=== PATIENT | male | born 1945 | race Caucasian/White ===

== ENCOUNTER 2019-04-23 07:18 | Inpatient (IN) | payer OTHER ==
--- NOTE | 2019-04-09 18:31 | HPE ---
DATE OF ADMISSION: 04/23/2019 CHIEF COMPLAINT: Left knee pain. HISTORY OF PRESENT ILLNESS: Mr. Rosen is a pleasant 73-year-old male with progressively worsening left knee pain and stiffness. He has failed to improve with conservative treatment. He has elected for surgery for his continued symptoms. He has pain with weightbearing activities and his activities of daily living. X-rays of his knee are notable for advanced osteoarthritis of the left knee joint. He has consented for a left total knee arthroplasty by Dr. Stef Kirby. Medical optimization was performed by Dr. Ronquillo. ALLERGIES: ALLOPURINOL. CURRENT MEDICATIONS: - Jardiance 10 mg - olmesartan 20 mg - febuxostat 80 mg - Synthroid 50 mcg - regular strength aspirin enteric-coated once a day - 80 mg of simvastatin at night - 200 mg of CoQ10 at night - 1000 mg of metformin twice a day - 150 mg of ranitidine twice a day - 5 mg of glipizide ER twice a day - 1400 mg flaxseed oil twice a day - tumeric twice a day - fiber caplets three of those twice a day - 25 mg of indomethacin as needed for gout flares PAST MEDICAL HISTORY: Includes diabetes, hypertension, hypercholesterolemia, hypothyroidism, and gout. PAST SURGICAL HISTORY: Includes eye surgery for amblyopia, left knee arthroscopy, and a foot surgery. 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 He does not smoke or drink alcohol. FAMILY HISTORY: Noncontributory. REVIEW OF SYSTEMS: This patient denies chest pain, heart palpitations, cough, wheezing, difficulty breathing and shortness of breath. He denies abdominal pain, nausea, vomiting, diarrhea or constipation. He denies recent upper respiratory infection or urinary tract infection symptoms. He does complain of persistent pain in the left knee. PHYSICAL EXAMINATION: GENERAL: He is a well-nourished, well-developed, in no acute distress, alert male patient. He ambulates with a moderate limp favoring the left lower extremity. He is not using assistive devices. VITAL SIGNS: He is 69-3/4 inches tall, weighs 203.4 pounds with a temperature of 96.6, blood pressure 110/60, pulse of 88 and respirations of 18. NECK: Supple without adenopathy or jugular venous distension. There were no carotid bruits upon auscultation. LUNGS: Clear to auscultation without rales or wheeze throughout. HEART: Regular rate and rhythm. ABDOMEN: Bowel sounds were present. EXTREMITIES: Examination of the knee revealed intact skin. The patient had decreased range of motion due to pain and stiffness. Otherwise, the limb is neurovascularly intact. LABORATORY DATA: Chest x-ray showed no acute cardiopulmonary disease processes. EKG showed normal sinus rhythm at 82 beats per minute. Prothrombin time 12.4, INR 0.95, glucose 68, BUN 19, creatinine 1.33 for a GFR of 56. Sodium 143, potassium 4.16. CBC was within normal limits with a sedimentation rate of 2. IMPRESSION: Symptomatic osteoarthritis of the left knee joint. PLAN: Consented for a left total knee arthroplasty by Dr. Stef Kirby.
[~2019-04-23] VITALS: Ht 177.8 cm; Wt 88.0 kg
[~2019-04-23 07:18] MED LIST: ACETAMINOPHEN 500 MG TAB As Ordered ONE; ASPI81TA85 PO; BAYE325T12 PO; BENI20TA18 PO; BUPIVACAINE HCL 0.25% 10 ML VIAL As Ordered ONE; BUPIVACAINE LIPOSOME/PF 1.3% 20ML VIAL (13.3MG/ML)(EXPAREL)(C9290 PER1MG) As Ordered ONE; COQ1200C3 PO; EPINEPHrine INJ 1 MG/ML 1ML AMP As Ordered ONE; FLAX1CAP5 PO; GLIP5TAB8 PO; INDO-16 PO; INVO100T PO; JARD1TAB PO; LIDO5DIS41 TOP; LIDOCAINE 1% MDV 20ML VIAL SQ PRN; LR 1,000 ML IV ONE; METF10004 PO; MIDAZOLAM INJ 2 MG/2 ML VIAL (J2250) IV SCH; NAPR-832 PO; NAPR-885 PO; OLME20TA2 PO; RANI1TAB6 PO; SIMV40TA2 PO; SIMV80TA13 PO; SYNT50TA PO; TRANEXAMIC ACID 100 MG/ML 10ML VIAL As Ordered ONE; ULOR80TA PO; VITA1TAB23 PO; VITA200016 PO; [UNRECOGNIZED DRUG - CODE] PO; ceFAZolin 1GM INJ (J0690 PER 500MG) As Ordered ONE; ceFAZolin 2 GM/D5W 50 ML IV BAG (J0690 PER 500MG) As Ordered ONE; fentaNYL 100 MCG/2 ML INJECTION (J3010) IV SCH; tumeric PO
[2019-04-23] MEDS ORDERED: LIDOCAINE 2% INJ 100 MG/5 ML SDV (FOR ANES.) As Ordered ONE (07:27)
[2019-04-23] MEDS ORDERED: PROPOFOL 200 MG/20 ML VIAL As Ordered ONE (07:27)
[2019-04-23] MEDS ORDERED: fentaNYL 100 MCG/2 ML INJECTION (J3010) As Ordered ONE ×2 (07:28→07:44)
[2019-04-23] MEDS ORDERED: MIDAZOLAM INJ 2 MG/2 ML VIAL (J2250) As Ordered ONE ×3 (07:28→10:30)
[2019-04-23] MEDS ORDERED: ACETAMINOPHEN 500 MG TAB PO ONE (07:30)
[2019-04-23] MEDS ORDERED: BUPIVACAINE HCL 0.25% 30 ML VIAL As Ordered ONE (07:56)
[2019-04-23] MEDS ORDERED: BUPIVACAINE HCL 0.25% 10 ML VIAL As Ordered ONE (07:56)
[2019-04-23] MEDS ORDERED: LIDOCAINE 1% MDV 20ML VIAL ONE (08:35)
[2019-04-23] MEDS ORDERED: dexameTHASONE 4 MG/ML 1ML VIAL (J1100) ONE (08:35)
[2019-04-23] MEDS ORDERED: PHENYLephrine HCL 500 MCG/5 ML (100MCG/ML) SYRINGE (J2370) As Ordered ONE (09:48)
[2019-04-23] MEDS ORDERED: ONDANSETRON 4MG/2ML VIAL (J2405) As Ordered ONE (10:07)
[2019-04-23] MEDS ORDERED: KETOROLAC 60 MG/2 ML VIAL (J1885) As Ordered ONE (10:07)
[2019-04-23] MEDS ORDERED: ACETAMINOPHEN TAB 650MG DOSE (2X325MG) PO PRN (11:45)
[2019-04-23] MEDS ORDERED: FLEET ENEMA PR PRN (11:45)
[2019-04-23] MEDS ORDERED: PROMETHAZINE INJ 25 MG/ML VIAL (J2550) IV PRN (12:00)
[2019-04-23] MEDS ORDERED: LR 1,000 ML IV SCH (12:00)
[2019-04-23] MEDS ORDERED: METOCLOPRAMIDE INJ 10MG/2ML VIAL (J2765) IV PRN (12:00)
[2019-04-23] MEDS ORDERED: HYDROMORPHONE HCL 0.5 MG/ 0.5 ML SYRINGE (J1170 PER 1) IV PRN ×3 (12:00)
[2019-04-23] MEDS ORDERED: fentaNYL 100 MCG/2 ML INJECTION (J3010) IV PRN (12:00)
[2019-04-23] MEDS ORDERED: oxyCODONE 5MG TAB As Ordered ONE ×2 (13:16→13:40)
[2019-04-23] MEDS: oxyCODONE 5MG TAB PO PRN ×2 (13:17→13:40)
[2019-04-23 14:00] VITALS: BP 121/65
[2019-04-23] MEDS: LR 1,000 ML IV SCH ×2 (14:30→22:31)
[2019-04-23 14:45] VITALS: BP 119/65
[2019-04-23] MEDS ORDERED: PERCOCET 5MG/325MG TAB PO PRN (15:15)
[2019-04-23] MEDS ORDERED: ONDANSETRON 4 MG TAB (S0181) PO PRN (15:15)
--- NOTE | 2019-04-23 15:30 | REP ---
REASON: Postoperative. The tibial and femoral components of the total knee prosthetic device are well seated and well approximated. The alignment is near anatomical. There is expected postoperative soft tissue swelling. There is an anterior midline skin staple line in place. Electronically Signed by Guanakito Flannery DO 04/23/2019 04:46 P
[2019-04-23 15:41] VITALS: BP 119/65
[2019-04-23 17:19] VITALS: BP 126/69
[2019-04-23] MEDS ORDERED: GLUCOSE 4 GM CHEW TABLET PO PRN (21:45)
[2019-04-23] MEDS ORDERED: GLUCAGON FOR INJ 1 MG VIAL (J1610) SC PRN (21:45)
[2019-04-23] MEDS ORDERED: DEXTROSE 50% 50 ML SYRINGE IV PRN (21:45)
[2019-04-23 22:25] VITALS: BP 117/68
[2019-04-24 02:00] VITALS: BP 115/56
[2019-04-24] MEDS: PERCOCET 5MG/325MG TAB PO PRN ×3 (03:19→12:51)
[2019-04-24 05:43] LABS: HEMATOCRIT 39.1 % (42.0-52.0); HEMOGLOBIN 13.3 g/dl (13.5-17.5); MEAN CORPUSCULAR HEMOGLOBIN 29.6 pg (27.0-33.0); MEAN CORPUSCULAR VOLUME 86.9 fl (80.0-96.0); PLATELET COUNT, AUTOMATED 148 10^3/uL (150-450); WHITE BLOOD COUNT 9.2 10^3/uL (4.0-10.0)
[2019-04-24 06:02] LABS: BLOOD UREA NITROGEN 17 MG/DL (7-18); CALCIUM LEVEL 8.1 MG/DL (8.8-10.2); CARBON DIOXIDE LEVEL 26 MEQ/L (21-32); CHLORIDE LEVEL 106 MEQ/L (98-107); CREATININE FOR GFR 1.13 MG/DL (0.70-1.30); GLOMERULAR FILTRATION RATE > 60.0 (>42); GLUCOSE, FASTING 127 MG/DL (70-100); POTASSIUM SERUM 4.1 MEQ/L (3.5-5.1); SODIUM LEVEL 139 MEQ/L (136-145)
--- NOTE | 2019-04-24 06:23 | CR.PDOC ---
General Date of Consultation: Apr 23, 2019 Attending Physician: ANGEL LONGO DO Consultation REASON FOR CONSULTATION/CHIEF COMPLAINT: S/p left knee replacement HISTORY OF PRESENT ILLNESS: Patient is 73 years old male with past medical history of osteoarthritis, gout, hypertension, hyperlipidemia presented hospital for planned left knee replacement. Left Knee replacement was done on 05/24/19. When I saw patient he was resting comfortably on the bed, he didn't have any complaints. He stated that he tolerated surgery well. Patient denied any palpitations, shortness of breath, abdominal pain, diarrhea or dysuria ALLERGIES: Please see below. HOME MEDICATIONS: Please see below. PAST MEDICAL HISTORY: See in [facility] PAST SURGICAL HISTORY: See in [facility] FAMILY HISTORY: Noncontributory SOCIAL HISTORY: Patient does not smoke, never smoked cigarettes, no drugs, no EtOH abuse REVIEW OF SYSTEMS: 10 system organ review negative PHYSICAL EXAMINATION: VITAL SIGNS: Please see below. GENERAL APPEARANCE:NAD HEENT: PERRLA, EOMI RESPIRATORY: CTA CARDIOVASCULAR: S1/S2 ABDOMEN: Nontender, nondistended EXTREMITIES: No cyanosis no swelling NEUROLOGICAL: No focal deficiency LABORATORY DATA: Please see below. ASSESSMENT/PLAN: Patient is 73 years old male with past medical history of gout, osteoarthritis, diabetes type 2, hyperlipidemia presented hospital for planned left knee surgery. Patient does not have any acute cardiopulmonary diseases. Patient is afebrile, does not have any signs of infection. Patient medically cleared for discharge Vital Signs/I&O Vital Signs Date Time Temp Pulse Resp B/P (MAP) Pulse Ox O2 Delivery O2 Flow Rate FiO2 04/24/19 03:49 20 04/23/19 22:25 97.9 82 117/68 (84) 98 04/23/19 14:23 2.0 I&O- Last 24 Hours up to 6 AM 04/24/19 05:59 Intake Total 1980 ml Output Total 700 ml Balance 1280 ml Laboratory Data Labs 24H Laboratory Tests 2 04/23/19 22:24: Bedside Glucose (Misc Panel) 182H 04/24/19 05:15: Nucleated Red Blood Cells % (auto) 0.0, Anion Gap 7L, Glomerular Filtration Rate > 60.0, Blood Urea Nitrogen 17, Creatinine 1.13, Sodium Level 139, Potassium Level 4.1, Chloride Level 106, Carbon Dioxide Level 26, Calcium Level 8.1L CBC/BMP Laboratory Tests 04/23/19 07:40 04/24/19 05:15 Red Blood Count 4.50, Mean Corpuscular Volume 86.9, Mean Corpuscular Hemoglobin 29.6, Mean Corpuscular Hemoglobin Concent 34.0, Red Cell Distribution Width 12.7, Calcium Level 8.1 L Allergies Coded Allergies: allopurinol (Verified Allergy, Intermediate, facial rash, 03/28/19) Home Medications Scheduled Aspirin (Aspirin) 325 Mg Tablet, 325 MG PO DAILY, (Reported) Empagliflozin (Jardiance) 10 Mg Tablet, 10 MG PO DAILY, (Reported) Febuxostat (Uloric) 80 Mg Tab, 80 MG PO DAILY, (Reported) Flaxseed Oil (Flaxseed Oil) 1,000 Mg Capsule, 1 CAP PO DAILY, (Reported) Glipizide (Glipizide) 5 Mg Tab, 5 MG PO BID, (Reported) Levothyroxine Sodium (Synthroid) 50 Mcg Tab, 50 MCG PO DAILY, (Reported) Metformin HCl (Metformin HCl) 1,000 Mg Tab, 1,000 MG PO BID, (Reported) Naproxen (Naproxen) 500 Mg Tab, 500 MG PO BID, (Reported) Olmesartan Medoxomil (Olmesartan Medoxomil) 20 Mg Tablet, 20 MG PO DAILY, (Reported) Psyllium Husk (Fiber Laxative) 0.52 Gm Capsule, 0.52 GM PO DAILY, (Reported) Ranitidine HCl (Ranitidine HCl) 150 Mg Tab, 150 MG PO BID, (Reported) Simvastatin (Simvastatin) 40 Mg Tablet, 80 MG PO DAILY, (Reported) Ubidecarenone (Co Q10) 200 Mg Capsule, 200 MG PO DAILY, (Reported) [tumeric] , 500 MG PO BID, (Reported) Scheduled PRN Indomethacin (Indomethacin) 25 Mg Cap, 25 MG PO TIDP PRN for PAIN, (Reported) Lidocaine (Lidoderm) 5% Adh..patch, 1 PATCH TOP Q12HP PRN for PAIN for 30 Days, #30 (Reported) may wear up to 12 hours ANGEL LONGO DO Apr 24, 2019 06:23
[2019-04-24 07:01] VITALS: BP 113/64
[2019-04-24] MEDS: HumaLOG INSULIN (NovoLOG) PER UNIT SC SCH ×2 (07:30→12:00)
[2019-04-24] MEDS ORDERED: XARE10TA PO (07:37)
[2019-04-24] MEDS ORDERED: PERC5TAB12 PO (07:37)
[2019-04-24] MEDS ORDERED: MOM 30ML SUSPENSION UDC PO SCH (09:00)
[2019-04-24] MEDS ORDERED: MIRALAX *UNIT DOSE* 17GM PACKET PO SCH (09:00)
[2019-04-24] MEDS ORDERED: RIVAROXABAN 10 MG TAB (XARELTO) PO SCH (18:00)
--- NOTE | 2019-04-25 12:07 | RO ---
DATE OF PROCEDURE: 04/23/2019 PREOPERATIVE DIAGNOSIS: Severe varus tricompartmental degenerative arthritis left knee. POSTOPERATIVE DIAGNOSIS: Severe varus tricompartmental degenerative arthritis left knee. PROCEDURE: Left total knee arthroplasty using cruciate sacrificing size #8 femoral component with a size #8 tibial tray and a 7 mm rotating platform posterior stabilized polyethylene insert and a 38 mm polyethylene button. The prosthesis was an ATTUNE knee made Abilio[employer]ilio/DePuy. SURGEON: Damaso Kirby MD TOP LIFT COMPRESSOR: Andressa Suarez PA-C ANESTHESIA: Spinal with left femoral nerve block. COMPLICATIONS: None. FINDINGS: He had severe varus tricompartmental arthritis with a large flexion contracture, approximately 20 degrees if not a little bit more with flexion limited only to about 90 at the most. He had large impinging osteophytes. PROCEDURE: Antibiotics were given intravenously preoperatively then a successful left femoral nerve block and then spinal anesthetic was induced. Tourniquet was placed left upper thigh, not inflated. Left lower extremity was carefully prepped and draped in the usual sterile fashion and elevated. Then after appropriate time out, the tourniquet was inflated to 250 mmHg for 89 minutes. A longitudinal incision was made for a medial parapatellar approach to the knee. Bovie cautery was used to coagulated crossing vessels. Subperiosteal dissection around the proximal, medial and lateral tibial plateau was performed, and the patella everted and knee flexed, drilled was placed down the center of the femoral canal followed by the intramedullary ayad and distal femoral cutting jig, set at 90 degree resection level, a 5 degree valgus cut for a left knee. It was pinned into position. We debated whether or not to take 2 additional millimeters because of his flexion contracture, but we would like to first take a look at the standard cut first. The AP sizing jig was measured for a size 8. It was pinned into position and then we performed the anterior posterior chamfer cuts without difficulty. We then exposed the proximal tibia at this point. But because of his severe deformity and flexion contracture, we would like to go with a cruciate sacrificing knee prosthesis. The ACL/PCL notch was then debrided at this point allowing us to better expose the proximal tibia. It is noteworthy that there is a large anterior impinging osteophyte along the anterior rim of the tibia, which is primarily preventing his extension. We used the extramedullary alignment jig to estimate being parallel to the mechanical axis of the tibia, referencing off the medial tibial condyle at 4 mm resection level. The block was pinned into position and the opposite good side came out at about 10 mm. Thus, we used the extramedullary ayad to confirm once again and double checked that we appeared to be parallel to the mechanical axis, however he had significant amount of bowing of the tibial shaft. The ayad did come down and lay directly in the middle of the ankle distally. We then performed the proximal tibial osteotomy and then excised the fragment and then used the lamina concrete spreader first laterally to perform a completion medial meniscectomy, debridement of posterior medial osteophytes, and there was a large posterior osteophyte that was removed with a curved osteotome. I then placed the lamina concrete spreader medially and performed a completion lateral meniscectomy. In the posterior lateral compartment there was a very large, what appeared to be a fabella, but it was unusually large such that it took up the entire width of the posterior femoral condyle, and it appeared almost as if this was a large loose body and thus I took my time to eventually excise this fragment to allow better mobility of the knee and access to the posterolateral compartment of the knee. I then used a spacer block and actually in flexion 7 mm fit nicely. He was a bit snug in extension, thus I felt going back and taking an addition 2 mm would be better balance. Thus I repinned the distal femoral cutting jig using the batwing device and took an additional 2 mm off the distal femur. Later on we applied the 4-in-1 block once again to finish the anterior and posterior chamfer cuts. We then exposed the proximal tibia, sized for a #8 tray, which was pinned into position, followed by the reamer and the broach, then the trial femoral component was applied, then the trial ethylene was placed and brought the knee into extension and everted the patella and performed a patellar osteotomy, sized for a 38 button, lug holes were drilled and the trial placed and the patellofemoral tracking was anatomic. At this point, we removed all of the trial components and placed Exparel in the subperiosteal tissues around the distal femur and the proximal tibia. Mr. Andressa Suarez then mixed the cement on the back table as I prepared the bony surfaces for cementing with a copious amount of pulsatile lavage irrigant solution. Mr. Suarez was also critical to the success of this very difficulty operative procedure given his marked deformity by helping with appropriate soft tissue retraction, helped to manipulate the knee, helped to close the wound, helped to mix the cement, helped to prepare the patient amongst many other tasks to allow me to perform the operation smoothly, efficiently and safely. Once all of the bony surfaces were thoroughly dried, I cemented the tibial try, removed excess cement, then we cemented the femoral component, removed excess cement, then placed the polyethylene and brought the knee into extension, everted the patella and then cemented the patellar button and held it with a clamp and then removed excess cement and held this position until the cement hardened. As we were awaiting this, we copiously pulsatile lavage irrigated out the knee joint and then instilled tranexamic acid, then began closing the apex of the arthrotomy with two #1 PDS sutures and the medial parapatellar area was closed with a #1 PDS suture. Then a running double armed #1 STRATAFIX was used to close the capsule. Then the tourniquet was released. We irrigated between layers. Closed the deep subdermal tissues with interrupted #2-0 PDS sutures and skin was closed with emma, covered by Optifoam and a dry sterile bulky dressing. He was then transferred to the recovery room in stable condition. There were no intraoperative complications.
== END 2019-04-24 13:00 | disposition home or self-care (01) | DRG 470 ==
LOC: M OR 07:18 → M MS5PR 13:55
PROVIDERS: ADMIT Orthopaedic Surgery; ATTEND Orthopaedic Surgery
PROC: 0SRD0J9 Replacement of Left Knee Joint with Synthetic Substitute, Cemented, Open Approach (ICD-10-PCS; principal; 2019-04-23 09:15)
DX: M17.12 Unilateral primary osteoarthritis, left knee (principal); Z79.899 Other long term (current) drug therapy; E11.9 Type 2 diabetes mellitus without complications; E03.9 Hypothyroidism, unspecified; E78.00 Pure hypercholesterolemia, unspecified; I10 Essential (primary) hypertension; M10.9 Gout, unspecified; Z79.82 Long term (current) use of aspirin

== ENCOUNTER → 2019-09-19 | Outpatient (REF) | payer MEDICARE ==
[~2019-09-19] MED LIST changes: -ACETAMINOPHEN 500 MG TAB As Ordered ONE; -BUPIVACAINE HCL 0.25% 10 ML VIAL As Ordered ONE; -BUPIVACAINE LIPOSOME/PF 1.3% 20ML VIAL (13.3MG/ML)(EXPAREL)(C9290 PER1MG) As Ordered ONE; -EPINEPHrine INJ 1 MG/ML 1ML AMP As Ordered ONE; -LIDOCAINE 1% MDV 20ML VIAL SQ PRN; -LR 1,000 ML IV ONE; -MIDAZOLAM INJ 2 MG/2 ML VIAL (J2250) IV SCH; +PERC5TAB12 PO; +RANI-397 PO; -RANI1TAB6 PO; -SIMV40TA2 PO; +SIMV40TA20 PO; -TRANEXAMIC ACID 100 MG/ML 10ML VIAL As Ordered ONE; +XARE10TA PO; -ceFAZolin 1GM INJ (J0690 PER 500MG) As Ordered ONE; -ceFAZolin 2 GM/D5W 50 ML IV BAG (J0690 PER 500MG) As Ordered ONE; -fentaNYL 100 MCG/2 ML INJECTION (J3010) IV SCH
[2019-09-19 20:22] LABS: BASO # 0.1 10^3/uL (0.0-0.2); BASO % 0.7 % (0.0-1.0); EOS # 0.2 10^3/uL (0.0-0.5); EOS % 1.7 % (0.0-3.0); HEMATOCRIT 50.7 % (42.0-52.0); HEMOGLOBIN 16.3 g/dl (13.5-17.5); LYMPH # 2.4 10^3/uL (1.5-5.0); LYMPH % 22.7 % (24.0-44.0); MEAN CORPUSCULAR HEMOGLOBIN 28.2 pg (27.0-33.0); MEAN CORPUSCULAR HGB CONC 32.1 g/dl (32.0-36.5); MEAN CORPUSCULAR VOLUME 87.7 fl (80.0-96.0); MONO # 0.8 10^3/uL (0.0-0.8); NEUTROPHILS % 66.6 % (36.0-66.0); PLATELET COUNT, AUTOMATED 232 10^3/uL (150-450); RED BLOOD COUNT 5.78 10^6/uL (4.30-6.10); WHITE BLOOD COUNT 10.6 10^3/uL (4.0-10.0)
[2019-09-19 20:36] LABS: BLOOD UREA NITROGEN 15 MG/DL (7-18); CALCIUM LEVEL 9.1 MG/DL (8.8-10.2); CARBON DIOXIDE LEVEL 29 MEQ/L (21-32); CHLORIDE LEVEL 104 MEQ/L (98-107); CHOLESTEROL LEVEL 104 MG/DL (<200); CHOLESTEROL RISK RATIO 3.586 (<5); CREATININE FOR GFR 1.18 MG/DL (0.70-1.30); GLOMERULAR FILTRATION RATE > 60.0 (>42); GLUCOSE, FASTING 82 MG/DL (70-100); HDL CHOLESTEROL 29 MG/DL (>40); LDL CHOLESTEROL 54 MG/DL (<100); NON-HDL-C 75 MG/DL; POTASSIUM SERUM 4.1 MEQ/L (3.5-5.1); SODIUM LEVEL 140 MEQ/L (136-145); TRIGLYCERIDES LEVEL 107 MG/DL (<150); URIC ACID 1.9 MG/DL (3.5-7.2)
[2019-09-19 20:40] LABS: VITAMIN B12 LEVEL 252 PG/ML (247-911)
[2019-09-19 20:49] LABS: HEMOGLOBIN A1c 5.8 %
[2019-09-19 20:54] LABS: CREATININE, URINE 80.8 MG/DL; MALB URINE SIEMENS 5.2 MG/L; MAU/CREAT RATIO 6.4 MCG/MG (0.0-30.0)
== END ==
LOC: M SFHCLERA 14:40
PROVIDERS: ATTEND Family Medicine
DX: E11.9 Type 2 diabetes mellitus without complications (principal); E78.5 Hyperlipidemia, unspecified; M10.9 Gout, unspecified

== ENCOUNTER → 2020-02-01 | Outpatient (CLI) | payer MEDICARE ==
[~2020-02-01] MED LIST changes: +ECOT81TA5 PO; +FAMO1TAB25 PO; +QC F0.52 PO
== END ==
LOC: M LABSMTC 09:34
PROVIDERS: ATTEND Anesthesiology
DX: Z01.818 Encounter for other preprocedural examination (principal); Z11.59 Encounter for screening for other viral diseases
CPT/HCPCS: C9803; U0003

== ENCOUNTER 2020-02-04 12:45 | Day surgery (SDC) | payer OTHER ==
[~2020-02-04] VITALS: Ht 177.8 cm; Wt 83.0 kg
[~2020-02-04 12:45] MED LIST changes: +NS 1,000 ML IV ONE
[2020-02-04] MEDS ORDERED: propofoL 200 MG/20 ML VIAL As Ordered ONE ×2 (13:54→14:08)
--- NOTE | 2020-02-04 14:24 | ROOR ---
Patient Name: Patrick Rosen Procedure Date: 02/04/2020 1:52 PM Date of : 1945 Age: 74 Room: [facility] Gender: Male Note Status: Finalized Procedure: Total Colonoscopy to Cecum + Biopsy Polypectomy Indications: High risk colon cancer surveillance: Personal history of colonic polyps, Last colonoscopy: 2015 Providers: Tadeo Camarillo MD Referring MD: CAMILO VALLEJO MD Requesting Provider: Medicines: Monitored Anesthesia Care Complications: No immediate complications. Procedure: Pre-Anesthesia Assessment: - The heart rate, respiratory rate, oxygen saturations, blood pressure, adequacy of pulmonary ventilation, and response to care were monitored throughout the procedure. The Colonoscope was introduced through the anus and advanced to the cecum, identified by appendiceal orifice and ileocecal valve. The colonoscopy was performed without difficulty. The patient tolerated the procedure well. The quality of the bowel preparation was excellent. Findings: The perianal and digital rectal examinations were normal. Two sessile polyps were found at 45 cm proximal to the anus. The polyps were diminutive in size. These polyps were removed with a cold biopsy forceps. Resection and retrieval were complete. No other significant abnormalities were identified in a careful examination of the remainder of the colon. The exam was otherwise without abnormality on direct and retroflexion views. Impression: - Two diminutive polyps at 45 cm proximal to the anus, removed with a cold biopsy forceps. Resected and retrieved. - The examination was otherwise normal on direct and retroflexion views. - The exam was otherwise normal to the cecum. Recommendation: - Patient has a contact number available for emergencies. The signs and symptoms of potential delayed complications were discussed with the patient. Return to normal activities tomorrow. Written discharge instructions were provided to the patient. - High fiber diet. - Discharge patient to home. - Continue present medications. - Await pathology results. - Telephone GI clinic for pathology results in 1 week. - Repeat colonoscopy for symptoms only. - Return to referring physician. - The findings and recommendations were discussed with the patient's family. Tadeo Camarillo MD Tadeo Camarillo MD 02/04/2020 2:24:01 PM Electronically signed by Tadeo Camarillo MD Number of Addenda: 0 Note Initiated On: 02/04/2020 1:52 PM Estimated Blood Loss: Estimated blood loss: none.
[2020-02-04 14:55] VITALS: BP 100/57
== END 2020-02-04 14:59 | disposition home or self-care (01) ==
LOC: M OPP 12:45
PROVIDERS: ATTEND Internal Medicine Gastroenterology
DX: Z12.11 Encounter for screening for malignant neoplasm of colon (principal); K63.5 Polyp of colon; Z79.82 Long term (current) use of aspirin; Z79.84 Long term (current) use of oral hypoglycemic drugs; Z79.899 Other long term (current) drug therapy; Z88.8 Allergy status to other drugs, medicaments and biological substances

== ENCOUNTER → 2020-02-08 | Outpatient (REF) | payer MEDICARE ==
[~2020-02-08] MED LIST changes: -NS 1,000 ML IV ONE
[2020-02-08 17:32] LABS: BASO # 0.1 10^3/uL (0.0-0.2); EOS # 0.2 10^3/uL (0.0-0.5); EOS % 2.6 % (0.0-3.0); HEMATOCRIT 46.4 % (42.0-52.0); LYMPH # 2.7 10^3/uL (1.5-5.0); LYMPH % 32.8 % (24.0-44.0); MEAN CORPUSCULAR HGB CONC 34.5 g/dl (32.0-36.5); MEAN CORPUSCULAR VOLUME 87.1 fl (80.0-96.0); MONO # 0.6 10^3/uL (0.0-0.8); MONO % 7.1 % (0.0-5.0); NEUTROPHILS # 4.7 10^3/uL (1.5-8.5); NEUTROPHILS % 56.3 % (36.0-66.0); PLATELET COUNT, AUTOMATED 214 10^3/uL (150-450); RED BLOOD COUNT 5.33 10^6/uL (4.30-6.10); WHITE BLOOD COUNT 8.3 10^3/uL (4.0-10.0)
[2020-02-08 18:02] LABS: BLOOD UREA NITROGEN 15 MG/DL (7-18); CALCIUM LEVEL 9.3 MG/DL (8.8-10.2); CARBON DIOXIDE LEVEL 30 MEQ/L (21-32); CHLORIDE LEVEL 103 MEQ/L (98-107); CREATININE FOR GFR 1.04 MG/DL (0.70-1.30); GLOMERULAR FILTRATION RATE > 60.0 (>42); GLUCOSE, FASTING 96 MG/DL (70-100); SODIUM LEVEL 141 MEQ/L (136-145)
[2020-02-08 19:09] LABS: HEMOGLOBIN A1c 6.4 %
== END ==
LOC: M SFHCLERA 16:09
PROVIDERS: ATTEND Family Medicine
DX: E11.9 Type 2 diabetes mellitus without complications (principal); D72.829 Elevated white blood cell count, unspecified; E03.9 Hypothyroidism, unspecified

== ENCOUNTER → 2020-07-11 | Outpatient (CLI) | payer MEDICARE, OTHER ==
[~2020-07-11] MED LIST changes: -ASPI81TA85 PO; +ASPI81TA86 PO; +FLON1SPR; +METF-877 PO; -VITA1TAB23 PO; +VITA250T26 PO
== END ==
LOC: M LABSMTC 11:47
PROVIDERS: ATTEND Anesthesiology
DX: Z01.812 Encounter for preprocedural laboratory examination (principal); Z20.828 Contact with and (suspected) exposure to other viral communicable diseases
CPT/HCPCS: C9803; U0003

== ENCOUNTER 2020-07-16 09:22 | Day surgery (SDC) | payer OTHER ==
[~2020-07-16] VITALS: Ht 177.8 cm; Wt 87.1 kg
[~2020-07-16 09:22] MED LIST changes: +NS 1,000 ML IV ONE
[2020-07-16] MEDS ORDERED: LIDOCAINE 2% 100MG/5ML SDV (FOR ANES.) As Ordered ONE (10:00)
[2020-07-16] MEDS ORDERED: propofoL 200 MG/20 ML VIAL As Ordered ONE (10:00)
[2020-07-16] MEDS ORDERED: fentaNYL 100 MCG/2 ML INJECTION (J3010) As Ordered ONE (10:06)
--- NOTE | 2020-07-16 11:42 | ROOR ---
Patient Name: Patrick Rosen Procedure Date: 07/16/2020 11:22 AM Date of : 1945 Age: 75 Room: [facility] Gender: Male Note Status: Finalized Procedure: Upper Endoscopy + Biopsies Indications: Heartburn, Chest pain (non cardiac) Providers: Tadeo Camarillo MD Referring MD: CAMILO VALLEJO MD Requesting Provider: Medicines: Monitored Anesthesia Care Complications: No immediate complications. Procedure: Pre-Anesthesia Assessment: - The heart rate, respiratory rate, oxygen saturations, blood pressure, adequacy of pulmonary ventilation, and response to care were monitored throughout the procedure. The Endoscope was introduced through the mouth, and advanced to the second part of duodenum. The upper GI endoscopy was accomplished without difficulty. The patient tolerated the procedure well. Findings: The Z-line was variable and was found 41 cm from the incisors. Multiple biopsies were obtained with cold forceps for evaluation to rule out Jhaveri's Esophagus randomly at the gastroesophageal junction. Diffuse mildly erythematous mucosa without bleeding was found in the gastric antrum. Biopsies were taken with a cold forceps for Helicobacter pylori testing. The exam of the duodenum was otherwise normal. Impression: - Z-line variable, 41 cm from the incisors. - Erythematous mucosa in the antrum. Biopsied. - Multiple biopsies were obtained at the gastroesophageal junction. - The examination was otherwise normal. Recommendation: - Patient has a contact number available for emergencies. The signs and symptoms of potential delayed complications were discussed with the patient. Return to normal activities tomorrow. Written discharge instructions were provided to the patient. - High fiber diet. - Discharge patient to home. - Follow an antireflux regimen. - Continue present medications. - Await pathology results. - Telephone GI clinic for pathology results in 1 week. - Return to referring physician. - The findings and recommendations were discussed with the patient. Tadeo Camarillo MD Tadeo Camarillo MD 07/16/2020 11:41:25 AM Electronically signed by Tadeo Camarillo MD Number of Addenda: 0 Note Initiated On: 07/16/2020 11:22 AM Estimated Blood Loss: Estimated blood loss: none.
[2020-07-16 12:00] VITALS: BP 118/64
== END 2020-07-16 12:13 | disposition home or self-care (01) ==
LOC: M OPP 09:22
PROVIDERS: ATTEND Internal Medicine Gastroenterology
DX: K22.8 Other specified diseases of esophagus (principal); K31.89 Other diseases of stomach and duodenum; R12 Heartburn; R07.89 Other chest pain; E11.9 Type 2 diabetes mellitus without complications; I10 Essential (primary) hypertension; K21.9 Gastro-esophageal reflux disease without esophagitis; Z79.82 Long term (current) use of aspirin; Z79.84 Long term (current) use of oral hypoglycemic drugs; Z79.899 Other long term (current) drug therapy; Z88.8 Allergy status to other drugs, medicaments and biological substances
CPT/HCPCS: 43239; 88305; J3010

== ENCOUNTER → 2022-03-31 | Outpatient (REF) | payer OTHER ==
[~2022-03-31] MED LIST changes: +FAMO10TA50 PO; -FAMO1TAB25 PO; -NS 1,000 ML IV ONE
== END ==
LOC: M SFHCPLAZ 16:41
PROVIDERS: ATTEND Physician Assistant
DX: R30.0 Dysuria (principal)

== ENCOUNTER → 2024-06-06 | Outpatient (REF) | payer OTHER ==
[~2024-06-06] MED LIST changes: -BENI20TA18 PO; +GLIP5TAB17 PO; -GLIP5TAB8 PO; +OLME-1 PO; -OLME20TA2 PO; +OLME20TA50 PO
[2024-06-06 18:32] LABS: HEMOGLOBIN A1c 6.9 % (4.0-6.0)
[2024-06-06 18:37] LABS: ALKALINE PHOSPHATASE 56 U/L (46-116); ALT/SGPT 18 U/L (7.0-40); AST/SGOT 10 U/L (<34); BILIRUBIN,TOTAL 0.9 MG/DL (0.3-1.2); BLOOD UREA NITROGEN 21 MG/DL (9-23); CALCIUM LEVEL 10.4 MG/DL (8.3-10.6); CARBON DIOXIDE LEVEL 29 MMOL/L (20-31); CHLORIDE LEVEL 102 MMOL/L (98-107); CREATININE FOR GFR 1.07 MG/DL (0.70-1.30); GLOMERULAR FILTRATION RATE > 60.0 (>35); GLUCOSE, FASTING 204 MG/DL (74-106); POTASSIUM SERUM 4.3 MMOL/L (3.5-5.1); SODIUM LEVEL 137 MMOL/L (136-145); TOTAL PROTEIN 7.1 G/DL (5.7-8.2)
== END ==
LOC: M SFHCLERA 10:16
PROVIDERS: ATTEND Family Medicine
DX: E11.9 Type 2 diabetes mellitus without complications (principal)

== ENCOUNTER 2024-07-16 11:31 | Day surgery (SDC) | payer MEDICARE, OTHER ==
[~2024-07-16] VITALS: Ht 177.8 cm; Wt 85.0 kg
[~2024-07-16 11:31] MED LIST changes: +DOXY100T PO; +FAMO40TA3 PO; +FEBU80TA4 PO; +FLUTISP; +LEVO50TA5 PO; +TAMS1CAP17 PO; +UBIQ200C3 PO
[2024-07-16] MEDS ORDERED: dexmedeTOMIDine (4MCG/ML)200MCG/50ML BTL (PRECEDEX) As Ordered ONE (12:17)
[2024-07-16] MEDS ORDERED: propofoL 200 MG/20 ML VIAL As Ordered ONE (12:17)
[2024-07-16] MEDS ORDERED: LIDOCAINE 2% 100MG/5ML SDV (FOR ANES.) As Ordered ONE (12:17)
[2024-07-16 13:29] VITALS: TEMP 97.3
[2024-07-16 14:02] VITALS: BP 96/56; O2SAT 98
== END 2024-07-16 14:02 | disposition home or self-care (01) ==
LOC: M OPP 11:31
PROVIDERS: ATTEND Internal Medicine Gastroenterology
DX: Z86.0100 Personal history of colon polyps, unspecified (principal); K22.70 Barrett's esophagus without dysplasia; K64.0 First degree hemorrhoids; D12.3 Benign neoplasm of transverse colon; K57.30 Diverticulosis of large intestine without perforation or abscess without bleeding; K22.89 Other specified disease of esophagus; K44.9 Diaphragmatic hernia without obstruction or gangrene; K31.89 Other diseases of stomach and duodenum; R12 Heartburn; K57.10 Diverticulosis of small intestine without perforation or abscess without bleeding; I49.9 Cardiac arrhythmia, unspecified; I10 Essential (primary) hypertension; E11.9 Type 2 diabetes mellitus without complications; E03.9 Hypothyroidism, unspecified; R06.83 Snoring; Z88.8 Allergy status to other drugs, medicaments and biological substances; Z79.890 Hormone replacement therapy; Z79.84 Long term (current) use of oral hypoglycemic drugs; Z79.899 Other long term (current) drug therapy

== ENCOUNTER → 2024-08-24 | Outpatient (CLI) | payer MEDICARE | LOC: M RAD 09:47 | PROVIDERS: ATTEND Physician Assistant | DX: M17.0 Bilateral primary osteoarthritis of knee (principal); Z96.652 Presence of left artificial knee joint | CPT/HCPCS: 78315; A9503 ==

== ENCOUNTER → 2025-08-20 | Outpatient (REF) | payer OTHER ==
[~2025-08-20] MED LIST changes: -BAYE325T12 PO; +BAYE325T2 PO; +LIDO1ADH93 TOP; -LIDO5DIS41 TOP
[2025-08-20 18:10] LABS: CREATININE, URINE 58.0 MG/DL; MALB URINE SIEMENS < 3.0 MG/L
[2025-08-20 19:14] LABS: BASO # 0.1 10^3/uL (0.0-0.2); BASO % 0.7 % (0.0-1.0); EOS # 0.1 10^3/uL (0.0-0.5); EOS % 1.9 % (0.0-3.0); LYMPH # 1.5 10^3/uL (1.5-5.0); LYMPH % 19.9 % (24.0-44.0); MONO # 0.5 10^3/uL (0.0-0.8); MONO % 6.4 % (2.0-8.0); NEUTROPHILS # 5.3 10^3/uL (1.5-8.5); NEUTROPHILS % 70.8 % (36.0-66.0); PLATELET COUNT, AUTOMATED 195 10^3/uL (150-450)
[2025-08-20 19:16] LABS: ALT/SGPT 20.0 U/L (7.0-40); AST/SGOT 13.0 U/L (<34); CALCIUM LEVEL 9.5 MG/DL (8.3-10.6); CARBON DIOXIDE LEVEL 26.0 MMOL/L (20-31); CHLORIDE LEVEL 105.0 MMOL/L (98-107); CHOLESTEROL LEVEL 133.0 MG/DL (<200); CHOLESTEROL RISK RATIO 4.23 (<5); CREATININE FOR GFR 1.04 MG/DL (0.70-1.30); GLOMERULAR FILTRATION RATE 72.1 (>35); LDL CHOLESTEROL 77.0 MG/DL (<100); NON-HDL-C 101.6 MG/DL; POTASSIUM SERUM 4.6 MMOL/L (3.5-5.1); SODIUM LEVEL 141.0 MMOL/L (136-145); TRIGLYCERIDES LEVEL 123.0 MG/DL (<150)
[2025-08-20 19:18] LABS: ESTIMATED AVERAGE GLUCOSE 232.0 MG/DL (60-110)
== END ==
LOC: M SFHCLERA 08:46
PROVIDERS: ATTEND Family Medicine
DX: Z00.00 Encounter for general adult medical examination without abnormal findings (principal); M10.9 Gout, unspecified; E11.9 Type 2 diabetes mellitus without complications; D72.829 Elevated white blood cell count, unspecified; E78.5 Hyperlipidemia, unspecified